=== PATIENT | female | born 1995 | race Two or more races ===

== ENCOUNTER 2021-03-19 16:55 | Outpatient (CLI) | payer OTHER | END 2021-03-19 21:09 | disposition home or self-care (01) | LOC: OBS/DEL 16:55 | PROVIDERS: ATTEND Obstetrics & Gynecology | DX: O13.3 Gestational [pregnancy-induced] hypertension without significant proteinuria, third trimester (principal); Z3A.39 39 weeks gestation of pregnancy ==

== ENCOUNTER 2021-03-22 10:20 | Inpatient (IN) | payer OTHER ==
[~2021-03-22] VITALS: Ht 160 cm; Wt 107.5 kg
[2021-03-26] MEDS ORDERED: PRENATAL CAPLE1 EAC1 PO (19:49)
[2021-03-26] MEDS ORDERED: LEVOTHYROXINE25 MCG PO (19:49)
[2021-03-26] MEDS ORDERED: ASPIRIN81 MG PO (19:49)
== END 2021-03-30 15:16 | disposition home or self-care (01) | DRG 788 ==
LOC: LDR 03-26 20:33 → O/R 03-27 20:37 → OB/GYN 03-27 23:48 → LDR 03-29 15:15 → OB/GYN 03-30 15:16
PROVIDERS: ADMIT Obstetrics & Gynecology; ATTEND Obstetrics & Gynecology
PROC: 3E0P7VZ Introduction of Hormone into Female Reproductive, Via Natural or Artificial Opening (ICD-10-PCS; 2021-03-27)
PROC: 4A1HXFZ Monitoring of Products of Conception, Cardiac Rhythm, External Approach (ICD-10-PCS; 2021-03-27)
PROC: 10D00Z1 Extraction of Products of Conception, Low, Open Approach (ICD-10-PCS; principal; 2021-03-27 19:45)
DX: O62.1 Secondary uterine inertia (principal); Z37.0 Single live birth; Z3A.39 39 weeks gestation of pregnancy

== ENCOUNTER 2021-03-26 18:53 | Outpatient (CLI) | payer OTHER ==
[2021-03-26] MEDS ORDERED: ASPIRIN81 MG PO (19:49)
[2021-03-26] MEDS ORDERED: PRENATAL CAPLE1 EAC1 PO (19:49)
[2021-03-26] MEDS ORDERED: LEVOTHYROXINE25 MCG PO (19:49)
== END 2021-03-26 20:37 | disposition still patient (30) ==
LOC: OBS/DEL 18:53
PROVIDERS: ATTEND Obstetrics & Gynecology
DX: O47.1 False labor at or after 37 completed weeks of gestation (principal); Z3A.39 39 weeks gestation of pregnancy